=== PATIENT | male | born 2000 | race Caucasian/White ===

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

== ENCOUNTER 2024-03-01 20:30 | Emergency (ER) | payer SELFPAY ==
[~2024-03-01] VITALS: Ht 180.3 cm; Wt 121.7 kg
[2024-03-01 21:19] VITALS: BP 131/78; RESP 16; TEMP 98.1; O2SAT 99
[2024-03-01 21:20] VITALS: PULSE 98; O2SAT 97
[2024-03-01] MEDS ORDERED: [UNRECOGNIZED DRUG - CODE] PO (22:18)
== END 2024-03-01 22:49 | disposition home or self-care (01) ==
LOC: ER 20:30
DX: H93.13 Tinnitus, bilateral (principal); R09.81 Nasal congestion
CPT/HCPCS: 99282